=== PATIENT | female | born 1935 | race Caucasian/White ===

== ENCOUNTER 2018-06-23 19:26 | Inpatient (IN) ==
[2018-06-23] MEDS: ALBUTEROL/IPRATROPIUM 3 ML NEB RESP TX PRN (20:49)
[2018-06-23] MEDS ORDERED: MAGNESIUM SULF RIDER 2 GM in PREMIX 1 EACH IV PRN (21:10)
[2018-06-23] MEDS: FUROSEMIDE 40 MG/4 ML VIAL IV SCH (22:28)
[2018-06-23] MEDS: cefTRIAXone 1,000 MG in SYRINGE 1 EACH IV SCH (22:29)
[2018-06-23] MEDS: POTASSIUM CHLORIDE 20 MEQ TABLET PO SCH (22:29)
[2018-06-24] MEDS: ALBUTEROL/IPRATROPIUM 3 ML NEB RESP TX PRN (00:14)
[2018-06-24 06:26] LABS: Basophils % 0.2 % (0.0-0.8); Hematocrit 29.2 VOL% (35.7-47.0); Hemoglobin 9.8 GM/DL (12.0-16.0); Immature Granulocytes % 3.5 %; Immature Granulocytes Absolute 0.43 #; Lymphocytes # 0.8 10*3/uL (1.4-4.0); Lymphocytes % 6.3 % (21.3-54.2); Mean Corpuscular HGB Conc 33.6 GM/DL (32-36); Mean Corpuscular Hemoglobin 26 PG (27-34); Mean Corpuscular Volume 77.7 FL (87-102); Monocytes # 1.2 10*3/uL (0.11-0.8); Monocytes % 9.7 % (1.7-12.7); Neutrophils # 9.9 10*3/uL (1.4-7.4); Neutrophils % 80.3 % (38.7-73.9); Platelet Count 101 T/CUMM (130-400); Red Blood Count 3.76 MC/CUMM (3.8-5.5); Red Cell Distribution Width 16.3 % (9.3-17.3); White Blood Count 12.3 T/CUMM (4-12)
[2018-06-24 06:33] LABS: Calcium 8.1 MG/DL (8.5-10.1); Osmolality,Calculated 277.1 MOS/KG (273-304); Potassium 3.3 MMOL/L (3.5-5.1)
[2018-06-24 06:46] LABS: Hypochromasia 1+; Microcytosis 1+; Ovalocytes Slight; Target Cells Slight
[2018-06-24 06:47] LABS: Platelet Estimate Decreased
[2018-06-24] MEDS ORDERED: POTASSIUM CHLORIDE 20 MEQ TABLET PO ONE (07:02)
[2018-06-24 07:42] LABS: Troponin I < 0.015 NG/ML (0.00-0.045)
[2018-06-24] MEDS ORDERED: POLYETHYLENE GLYCOL POWDER 17 GM PACK PO PRN (07:46)
[2018-06-24] MEDS ORDERED: CETIRIZINE 10 MG TABLET PO PRN (07:46)
[2018-06-24] MEDS ORDERED: MECLIZINE 12.5 MG TABLET PO PRN (07:46)
[2018-06-24] MEDS ORDERED: FAMOTIDINE 20 MG TABLET PO PRN (07:46)
[2018-06-24] MEDS ORDERED: NITROGLYCERIN SL 0.4 MG TABLET SL PRN (07:46)
[2018-06-24] MEDS ORDERED: ACETAMINOPHEN 325 MG TABLET PO PRN (07:46)
[2018-06-24] MEDS ORDERED: PROMETHAZINE 25 MG TABLET PO PRN (07:46)
[2018-06-24] MEDS ORDERED: ALBUTEROL 2.5 MG/3 ML NEB RESP TX PRN (07:46)
[2018-06-24] MEDS ORDERED: ALUMINUM/MAGNES/SIMETH MAX STR 30 ML UDCUP PO PRN (08:00)
[2018-06-24] MEDS ORDERED: NON-FORMULARY MEDICATION (Cranberry Fruit Extract [Cranberry] 500 MG) PO SCH (09:00)
[2018-06-24] MEDS: TAMSULOSIN 0.4 MG CAPSULE PO SCH (09:19)
[2018-06-24] MEDS: amLODIPine 5 MG TABLET PO SCH (09:19)
[2018-06-24] MEDS: CARBIDOPA/LEVODOPA 25-100 MG TABLET PO SCH ×4 (09:19→21:42)
[2018-06-24] MEDS: PREGABALIN 100 MG CAPSULE PO SCH ×3 (09:19→21:42)
[2018-06-24] MEDS: rOPINIRole 1 MG TABLET PO SCH ×2 (09:19→21:42)
[2018-06-24] MEDS: POTASSIUM CHLORIDE 20 MEQ TABLET PO SCH ×2 (09:20→21:42)
[2018-06-24] MEDS: CLOPIDOGREL 75 MG TABLET PO SCH (09:20)
[2018-06-24] MEDS: OLANZapine 5 MG TABLET PO SCH (09:20)
[2018-06-24] MEDS: traMADol 50 MG TABLET PO SCH ×2 (09:20→15:37)
[2018-06-24] MEDS: ASPIRIN EC 81 MG TABLET PO SCH (09:20)
[2018-06-24] MEDS: PANTOPRAZOLE 40 MG TABLET PO SCH (09:20)
[2018-06-24] MEDS: FUROSEMIDE 40 MG/4 ML VIAL IV SCH ×2 (09:21→15:40)
[2018-06-24] MEDS: methylPREDNISolone SOD SUC 40 MG/1 ML VIAL IV SCH ×3 (09:27→21:41)
[2018-06-24] MEDS: LACTOBACILLUS ACIDOPHILUS/BULGARICUS CAPLET PO SCH ×2 (12:12→21:42)
[2018-06-24 12:24] LABS: Troponin I < 0.015 NG/ML (0.00-0.045)
[2018-06-24 13:44] LABS: Troponin I < 0.015 NG/ML (0.00-0.045)
[2018-06-24 16:29] LABS: Troponin I < 0.015 NG/ML (0.00-0.045)
[2018-06-24] MEDS: DONEPEZIL 10 MG TABLET PO SCH (18:06)
[2018-06-24] MEDS: ATORVASTATIN 10 MG TABLET PO SCH (18:06)
[2018-06-24] MEDS: COLESEVELAM 625 MG TABLET PO SCH (21:41)
[2018-06-24] MEDS: MONTELUKAST 10 MG TABLET PO SCH (21:42)
[2018-06-24] MEDS: cefTRIAXone 1,000 MG in SYRINGE 1 EACH IV SCH (21:42)
[2018-06-24] MEDS ORDERED: DILTIAZEM 50 MG/10 ML VIAL IV ONE (22:58)
[2018-06-24] MEDS ORDERED: DILTIAZEM 25 MG/5 ML VIAL IV ONE (23:30)
[2018-06-24] MEDS: dilTIAZem Drip 125 MG/125 ML PREMIX IV SCH (23:57)
[2018-06-25] MEDS: traMADol 50 MG TABLET PO SCH ×3 (01:15→16:03)
[2018-06-25] MEDS: methylPREDNISolone SOD SUC 40 MG/1 ML VIAL IV SCH ×4 (04:06→22:16)
[2018-06-25] MEDS: LEVOTHYROXINE 100 MCG TABLET PO SCH (06:06)
[2018-06-25 06:31] LABS: Calcium 8.3 MG/DL (8.5-10.1); Osmolality,Calculated 278.2 MOS/KG (273-304); Potassium 3.9 MMOL/L (3.5-5.1)
[2018-06-25] MEDS ORDERED: NON-FORMULARY MEDICATION (Mirabegron [Myrbetriq] 25 MG) PO SCH (09:00)
[2018-06-25] MEDS ORDERED: ERGOCALCIFEROL 50,000 UNIT CAPSULE PO SCH (09:00)
[2018-06-25] MEDS: rOPINIRole 1 MG TABLET PO SCH ×2 (09:12→22:01)
[2018-06-25] MEDS: LACTOBACILLUS ACIDOPHILUS/BULGARICUS CAPLET PO SCH ×2 (09:12→22:01)
[2018-06-25] MEDS: OLANZapine 5 MG TABLET PO SCH (09:12)
[2018-06-25] MEDS: PANTOPRAZOLE 40 MG TABLET PO SCH (09:12)
[2018-06-25] MEDS: PREGABALIN 100 MG CAPSULE PO SCH ×3 (09:12→22:01)
[2018-06-25] MEDS: POTASSIUM CHLORIDE 20 MEQ TABLET PO SCH ×2 (09:13→22:01)
[2018-06-25] MEDS: TAMSULOSIN 0.4 MG CAPSULE PO SCH (09:14)
[2018-06-25] MEDS: CLOPIDOGREL 75 MG TABLET PO SCH (09:14)
[2018-06-25] MEDS: amLODIPine 5 MG TABLET PO SCH (09:14)
[2018-06-25] MEDS: ASPIRIN EC 81 MG TABLET PO SCH (09:14)
[2018-06-25] MEDS: FUROSEMIDE 40 MG/4 ML VIAL IV SCH ×2 (09:31→16:04)
[2018-06-25] MEDS: CARBIDOPA/LEVODOPA 25-100 MG TABLET PO SCH ×4 (09:52→22:01)
[2018-06-25] MEDS: dilTIAZem Drip 125 MG/125 ML PREMIX IV SCH (14:38)
[2018-06-25] MEDS: ATORVASTATIN 10 MG TABLET PO SCH (16:04)
[2018-06-25] MEDS: DONEPEZIL 10 MG TABLET PO SCH (18:12)
[2018-06-25] MEDS: MONTELUKAST 10 MG TABLET PO SCH (22:01)
[2018-06-25] MEDS: COLESEVELAM 625 MG TABLET PO SCH (22:16)
[2018-06-25] MEDS: cefTRIAXone 1,000 MG in SYRINGE 1 EACH IV SCH (22:20)
[2018-06-26] MEDS: traMADol 50 MG TABLET PO SCH ×4 (00:59→23:43)
[2018-06-26] MEDS: dilTIAZem Drip 125 MG/125 ML PREMIX IV SCH ×3 (03:42→23:42)
[2018-06-26] MEDS: methylPREDNISolone SOD SUC 40 MG/1 ML VIAL IV SCH ×4 (04:22→22:39)
[2018-06-26] MEDS: LEVOTHYROXINE 100 MCG TABLET PO SCH (06:23)
[2018-06-26] MEDS: PANTOPRAZOLE 40 MG TABLET PO SCH (09:56)
[2018-06-26] MEDS: PREGABALIN 100 MG CAPSULE PO SCH ×3 (09:56→22:38)
[2018-06-26] MEDS: POTASSIUM CHLORIDE 20 MEQ TABLET PO SCH ×2 (09:56→22:38)
[2018-06-26] MEDS: amLODIPine 5 MG TABLET PO SCH (09:56)
[2018-06-26] MEDS: ASPIRIN EC 81 MG TABLET PO SCH (09:56)
[2018-06-26] MEDS: SOTALOL 80 MG TABLET PO SCH ×2 (09:56→22:38)
[2018-06-26] MEDS: CLOPIDOGREL 75 MG TABLET PO SCH (09:56)
[2018-06-26] MEDS: CARBIDOPA/LEVODOPA 25-100 MG TABLET PO SCH ×4 (09:57→22:38)
[2018-06-26] MEDS: LACTOBACILLUS ACIDOPHILUS/BULGARICUS CAPLET PO SCH ×2 (09:57→22:38)
[2018-06-26] MEDS: FUROSEMIDE 40 MG/4 ML VIAL IV SCH ×2 (09:57→16:18)
[2018-06-26] MEDS: TAMSULOSIN 0.4 MG CAPSULE PO SCH (09:57)
[2018-06-26] MEDS: rOPINIRole 1 MG TABLET PO SCH ×2 (09:57→22:38)
[2018-06-26] MEDS: OLANZapine 5 MG TABLET PO SCH (09:57)
[2018-06-26] MEDS: ATORVASTATIN 10 MG TABLET PO SCH (16:18)
[2018-06-26] MEDS: DONEPEZIL 10 MG TABLET PO SCH (18:30)
[2018-06-26] MEDS: COLESEVELAM 625 MG TABLET PO SCH (22:38)
[2018-06-26] MEDS: cefTRIAXone 1,000 MG in SYRINGE 1 EACH IV SCH (22:39)
[2018-06-26] MEDS: MONTELUKAST 10 MG TABLET PO SCH (22:39)
[2018-06-27] MEDS: methylPREDNISolone SOD SUC 40 MG/1 ML VIAL IV SCH ×4 (02:31→22:06)
[2018-06-27] MEDS: LEVOTHYROXINE 100 MCG TABLET PO SCH (07:04)
[2018-06-27] MEDS: ENOXAPARIN 30 MG/0.3 ML SYRINGE SUBCUT SCH (09:38)
[2018-06-27] MEDS: FUROSEMIDE 40 MG/4 ML VIAL IV SCH ×2 (09:40→16:04)
[2018-06-27] MEDS: POTASSIUM CHLORIDE 20 MEQ TABLET PO SCH ×2 (09:46→22:04)
[2018-06-27] MEDS: traMADol 50 MG TABLET PO SCH ×2 (09:46→16:09)
[2018-06-27] MEDS: LACTOBACILLUS ACIDOPHILUS/BULGARICUS CAPLET PO SCH ×2 (09:46→22:05)
[2018-06-27] MEDS: CLOPIDOGREL 75 MG TABLET PO SCH (09:46)
[2018-06-27] MEDS: OLANZapine 5 MG TABLET PO SCH (09:47)
[2018-06-27] MEDS: CARBIDOPA/LEVODOPA 25-100 MG TABLET PO SCH ×4 (09:47→22:03)
[2018-06-27] MEDS: rOPINIRole 1 MG TABLET PO SCH ×2 (09:47→22:05)
[2018-06-27] MEDS: TAMSULOSIN 0.4 MG CAPSULE PO SCH (09:47)
[2018-06-27] MEDS: SOTALOL 80 MG TABLET PO SCH ×2 (09:47→22:05)
[2018-06-27] MEDS: ASPIRIN EC 81 MG TABLET PO SCH (09:47)
[2018-06-27] MEDS: amLODIPine 5 MG TABLET PO SCH (09:47)
[2018-06-27] MEDS: PANTOPRAZOLE 40 MG TABLET PO SCH (09:48)
[2018-06-27] MEDS: PREGABALIN 100 MG CAPSULE PO SCH ×3 (09:48→22:05)
[2018-06-27] MEDS: ATORVASTATIN 10 MG TABLET PO SCH (16:04)
[2018-06-27] MEDS: DONEPEZIL 10 MG TABLET PO SCH (19:00)
[2018-06-27] MEDS: MONTELUKAST 10 MG TABLET PO SCH (22:04)
[2018-06-27] MEDS: COLESEVELAM 625 MG TABLET PO SCH (22:06)
[2018-06-27] MEDS: cefTRIAXone 1,000 MG in SYRINGE 1 EACH IV SCH (22:13)
[2018-06-28] MEDS: dilTIAZem Drip 125 MG/125 ML PREMIX IV SCH ×2 (00:19→22:35)
[2018-06-28] MEDS: traMADol 50 MG TABLET PO SCH ×2 (00:19→09:21)
[2018-06-28] MEDS: methylPREDNISolone SOD SUC 40 MG/1 ML VIAL IV SCH ×3 (03:35→21:53)
[2018-06-28] MEDS: LEVOTHYROXINE 100 MCG TABLET PO SCH (06:30)
[2018-06-28] MEDS: OLANZapine 5 MG TABLET PO SCH (09:13)
[2018-06-28] MEDS: ENOXAPARIN 30 MG/0.3 ML SYRINGE SUBCUT SCH (09:13)
[2018-06-28] MEDS: CARBIDOPA/LEVODOPA 25-100 MG TABLET PO SCH ×4 (09:13→21:53)
[2018-06-28] MEDS: amLODIPine 5 MG TABLET PO SCH (09:13)
[2018-06-28] MEDS: LACTOBACILLUS ACIDOPHILUS/BULGARICUS CAPLET PO SCH ×2 (09:13→21:54)
[2018-06-28] MEDS: SOTALOL 80 MG TABLET PO SCH ×2 (09:14→21:54)
[2018-06-28] MEDS: PANTOPRAZOLE 40 MG TABLET PO SCH (09:14)
[2018-06-28] MEDS: rOPINIRole 1 MG TABLET PO SCH ×2 (09:14→21:54)
[2018-06-28] MEDS: TAMSULOSIN 0.4 MG CAPSULE PO SCH (09:14)
[2018-06-28] MEDS: ASPIRIN EC 81 MG TABLET PO SCH (09:14)
[2018-06-28] MEDS: POTASSIUM CHLORIDE 20 MEQ TABLET PO SCH ×2 (09:14→21:53)
[2018-06-28] MEDS: CLOPIDOGREL 75 MG TABLET PO SCH (09:14)
[2018-06-28] MEDS: FUROSEMIDE 40 MG/4 ML VIAL IV SCH ×2 (09:16→17:15)
[2018-06-28] MEDS: PREGABALIN 100 MG CAPSULE PO SCH (09:21)
[2018-06-28] MEDS ORDERED: traMADol 50 MG TABLET PO PRN (09:22)
[2018-06-28] MEDS: ATORVASTATIN 10 MG TABLET PO SCH (17:15)
[2018-06-28] MEDS: DONEPEZIL 10 MG TABLET PO SCH (18:28)
[2018-06-28] MEDS: COLESEVELAM 625 MG TABLET PO SCH (21:54)
[2018-06-28] MEDS: MONTELUKAST 10 MG TABLET PO SCH (21:54)
[2018-06-28] MEDS: cefTRIAXone 1,000 MG in SYRINGE 1 EACH IV SCH (22:03)
[2018-06-29 04:27] LABS: Basophils # 0.1 10*3/uL (0.0-0.2); Basophils % 0.4 % (0.0-0.8); Hematocrit 37.2 VOL% (35.7-47.0); Hemoglobin 11.8 GM/DL (12.0-16.0); Immature Granulocytes % 5.2 %; Immature Granulocytes Absolute 1.67 #; Lymphocytes # 1.2 10*3/uL (1.4-4.0); Lymphocytes % 3.9 % (21.3-54.2); Mean Corpuscular HGB Conc 31.7 GM/DL (32-36); Mean Corpuscular Hemoglobin 25 PG (27-34); Mean Corpuscular Volume 79.7 FL (87-102); Mean Platelet Volume 12.9 FL (9.6-12.0); Monocytes # 1.3 10*3/uL (0.11-0.8); Monocytes % 3.9 % (1.7-12.7); Neutrophils # 27.8 10*3/uL (1.4-7.4); Neutrophils % 86.6 % (38.7-73.9); Platelet Count 316 T/CUMM (130-400); Red Blood Count 4.67 MC/CUMM (3.8-5.5); White Blood Count 32.1 T/CUMM (4-12)
[2018-06-29 04:56] LABS: Band Neutrophils 1 % (0-10); Lymphocytes 5 % (20-55); Segmented Neutrophils 89 % (50-85); Total Cells Counted 100
[2018-06-29 04:57] LABS: Giant Platelets Few; Hypochromasia 1+; Platelet Estimate Normal; Target Cells Few
[2018-06-29 04:58] LABS: Albumin 2.4 G/DL (3.4-5.0); Bilirubin,Total 0.7 MG/DL (0.2-1.0); Calcium 7.9 MG/DL (8.5-10.1); Osmolality,Calculated 317.7 MOS/KG (273-304); Potassium 3.4 MMOL/L (3.5-5.1)
[2018-06-29] MEDS: LEVOTHYROXINE 100 MCG TABLET PO SCH (06:35)
[2018-06-29] MEDS: rOPINIRole 1 MG TABLET PO SCH ×2 (09:20→21:26)
[2018-06-29] MEDS: PANTOPRAZOLE 40 MG TABLET PO SCH (09:20)
[2018-06-29] MEDS: CLOPIDOGREL 75 MG TABLET PO SCH (09:20)
[2018-06-29] MEDS: ASPIRIN EC 81 MG TABLET PO SCH (09:20)
[2018-06-29] MEDS: amLODIPine 5 MG TABLET PO SCH (09:20)
[2018-06-29] MEDS: CARBIDOPA/LEVODOPA 25-100 MG TABLET PO SCH ×4 (09:20→21:26)
[2018-06-29] MEDS: SOTALOL 80 MG TABLET PO SCH ×2 (09:20→21:27)
[2018-06-29] MEDS: LACTOBACILLUS ACIDOPHILUS/BULGARICUS CAPLET PO SCH ×2 (09:20→21:26)
[2018-06-29] MEDS: TAMSULOSIN 0.4 MG CAPSULE PO SCH (09:20)
[2018-06-29] MEDS: POTASSIUM CHLORIDE 20 MEQ TABLET PO SCH ×2 (09:21→21:26)
[2018-06-29] MEDS: FUROSEMIDE 40 MG/4 ML VIAL IV SCH ×2 (09:22→16:48)
[2018-06-29] MEDS: OLANZapine 5 MG TABLET PO SCH (09:22)
[2018-06-29] MEDS: ENOXAPARIN 30 MG/0.3 ML SYRINGE SUBCUT SCH (09:22)
[2018-06-29] MEDS: methylPREDNISolone SOD SUC 40 MG/1 ML VIAL IV SCH (09:26)
[2018-06-29] MEDS: ATORVASTATIN 10 MG TABLET PO SCH (16:47)
[2018-06-29] MEDS: DONEPEZIL 10 MG TABLET PO SCH (18:15)
[2018-06-29] MEDS: cefTRIAXone 1,000 MG in SYRINGE 1 EACH IV SCH (21:26)
[2018-06-29] MEDS: COLESEVELAM 625 MG TABLET PO SCH (21:26)
[2018-06-29] MEDS: MONTELUKAST 10 MG TABLET PO SCH (21:26)
[2018-06-30] MEDS: dilTIAZem Drip 125 MG/125 ML PREMIX IV SCH (00:23)
[2018-06-30 04:34] LABS: Albumin 2.5 G/DL (3.4-5.0); Bilirubin,Total 0.4 MG/DL (0.2-1.0); Calcium 8.4 MG/DL (8.5-10.1); Osmolality,Calculated 318.6 MOS/KG (273-304); Potassium 3.6 MMOL/L (3.5-5.1); Total Protein 7.3 G/DL (6.4-8.3)
[2018-06-30] MEDS: LEVOTHYROXINE 100 MCG TABLET PO SCH (06:47)
[2018-06-30 07:30] LABS: Basophils # 0.1 10*3/uL (0.0-0.2); Basophils % 0.2 % (0.0-0.8); Eosinophils # 0.1 10*3/uL (0.0-0.87); Eosinophils % 0.1 % (0.00-10.9); Hematocrit 41.1 VOL% (35.7-47.0); Hemoglobin 13.1 GM/DL (12.0-16.0); Immature Granulocytes % 3.1 %; Immature Granulocytes Absolute 1.14 #; Lymphocytes # 1.6 10*3/uL (1.4-4.0); Lymphocytes % 4.3 % (21.3-54.2); Mean Corpuscular HGB Conc 31.9 GM/DL (32-36); Mean Corpuscular Hemoglobin 26 PG (27-34); Mean Corpuscular Volume 81.2 FL (87-102); Mean Platelet Volume 12.3 FL (9.6-12.0); Monocytes # 1.5 10*3/uL (0.11-0.8); NRBC # 0.02 10*3/uL; Neutrophils # 32.5 10*3/uL (1.4-7.4); Neutrophils % 88.3 % (38.7-73.9); Platelet Count 294 T/CUMM (130-400); Red Blood Count 5.06 MC/CUMM (3.8-5.5); Red Cell Distribution Width 17.8 % (9.3-17.3); White Blood Count 36.8 T/CUMM (4-12)
[2018-06-30 07:57] LABS: Band Neutrophils 3 % (0-10); Lymphocytes 3 % (20-55); Platelet Estimate Normal; Segmented Neutrophils 91 % (50-85); Total Cells Counted 100
[2018-06-30 07:58] LABS: Anisocytosis Slight
[2018-06-30] MEDS: FUROSEMIDE 40 MG/4 ML VIAL IV SCH (08:20)
[2018-06-30] MEDS ORDERED: methylPREDNISolone SOD SUC 40 MG/1 ML VIAL IV SCH (09:00)
[2018-06-30] MEDS: ENOXAPARIN 30 MG/0.3 ML SYRINGE SUBCUT SCH (09:18)
[2018-06-30] MEDS: POTASSIUM CHLORIDE 20 MEQ TABLET PO SCH ×2 (09:18→15:31)
[2018-06-30] MEDS: TAMSULOSIN 0.4 MG CAPSULE PO SCH (09:19)
[2018-06-30] MEDS: CLOPIDOGREL 75 MG TABLET PO SCH (09:19)
[2018-06-30] MEDS: OLANZapine 5 MG TABLET PO SCH (09:19)
[2018-06-30] MEDS: PANTOPRAZOLE 40 MG TABLET PO SCH (09:19)
[2018-06-30] MEDS: rOPINIRole 1 MG TABLET PO SCH (09:19)
[2018-06-30] MEDS: ASPIRIN EC 81 MG TABLET PO SCH (09:19)
[2018-06-30] MEDS: amLODIPine 5 MG TABLET PO SCH (09:19)
[2018-06-30] MEDS: LACTOBACILLUS ACIDOPHILUS/BULGARICUS CAPLET PO SCH (09:19)
[2018-06-30] MEDS: CARBIDOPA/LEVODOPA 25-100 MG TABLET PO SCH ×2 (09:21→13:50)
[2018-06-30] MEDS: SOTALOL 80 MG TABLET PO SCH (09:32)
[2018-06-30 12:20] VITALS: BP 145/70
[2018-06-30] MEDS ORDERED: FUROSEMIDE 40 MG TABLET PO SCH (16:00)
== END 2018-06-30 15:25 | DRG 291 ==
LOC: N.TELEN 19:26 → N.TELENOUT 19:26 → N.TELEN 19:27 → UNDODISIN 06-30 15:25 → EDSTATUS 07-01 04:33
PROVIDERS: ADMIT Family Medicine; ATTEND Family Medicine